=== PATIENT | female | born 1950 | race African-American/Black ===

== ENCOUNTER 2018-10-03 23:41 | Inpatient (IN) | payer MEDICARE, BC ==
[~2018-10-03] VITALS: Ht 177.8 cm; Wt 118.8 kg
[2018-10-04] MEDS ORDERED: MORPHINE SULFATE 4 MG/ML CPJ (NOT FOR IM USE) IV ONE ×2 (01:45→05:00)
[2018-10-04] MEDS ORDERED: ONDANSETRON HCL 4MG/2ML INJ IV ONE ×2 (01:45→05:00)
[2018-10-04 06:28] LABS: EOSINOPHILS % 1.3 % (0.0-5.0); HEMATOCRIT. 35.2 % (36.0-48.0); HEMOGLOBIN. 11.3 g/dL (12.0-16.0); LYMPHOCYTES % 17.5 % (20.0-50.0); MEAN CORPUSCULAR HEMOGLOBIN 26.4 pg (28.0-32.0); MEAN CORPUSCULAR VOLUME 82.4 fL (81.0-99.0); MEAN PLATELET VOLUME 9.6 fl (7.4-10.4); NEUTROPHILS % 66.2 % (40.0-76.0); PLATELET 213 x1000/uL (130-400); RED BLOOD CELL COUNT 4.28 mill/uL (4.2-5.4); RED CELL DISTRIBUTION WIDTH 16.5 % (11.6-14.6)
[2018-10-04 06:37] LABS: CHLORIDE 108 mEq/L (98-107)
[2018-10-04] MEDS ORDERED: ACETAMINOPHEN 325MG TABLET PO SCH (11:15)
[2018-10-04] MEDS ORDERED: ONDANSETRON HCL 4MG/2ML INJ IV PRN (12:15)
[2018-10-04] MEDS ORDERED: NITROGLYCERIN 0.4MG TABLET SL SL PRN (12:15)
[2018-10-04] MEDS ORDERED: IPRATROPIUM/ALBUTEROL 0.5-3(2.5)MG/3ML NEB INH PRN (12:15)
[2018-10-04] MEDS ORDERED: GUAIFENESIN 200MG/10ML SUGAR FREE UDC PO PRN (12:15)
[2018-10-04] MEDS ORDERED: MAGNESIUM/ALUMINUM HYDROXIDE/SIMETHICONE 30ML UDC PO PRN (12:15)
[2018-10-04] MEDS ORDERED: DOCUSATE SODIUM 100MG CAPSULE PO PRN (12:15)
[2018-10-04] MEDS: ENOXAPARIN 30MG/0.3ML SYR SUBCUT SCH ×2 (13:00→21:05)
[2018-10-04 13:11] VITALS: BP 135/66
[2018-10-04] MEDS: KETOROLAC 15MG/ML VIAL IV PRN ×2 (15:26→20:53)
[2018-10-04 16:00] VITALS: BP_SYST 134; BP_SYST 142; BP_DIAS 62; BP_DIAS 72
[2018-10-04 20:00] VITALS: BP 129/64
[2018-10-04] MEDS: FAMOTIDINE 20MG TABLET PO SCH (20:51)
[2018-10-04] MEDS: METOPROLOL TARTRATE 25MG TABLET PO SCH (20:52)
[2018-10-05] VITALS: BP 140/84
[2018-10-05] MEDS: KETOROLAC 15MG/ML VIAL IV PRN ×3 (03:21→23:43)
[2018-10-05 04:00] VITALS: BP 124/71
[2018-10-05 08:00] VITALS: BP 152/72
[2018-10-05] MEDS: ASPIRIN 325MG EC TABLET PO SCH (08:30)
[2018-10-05] MEDS: METOPROLOL TARTRATE 25MG TABLET PO SCH ×2 (08:30→22:21)
[2018-10-05] MEDS: FAMOTIDINE 20MG TABLET PO SCH ×2 (08:30→22:20)
[2018-10-05] MEDS: ENOXAPARIN 30MG/0.3ML SYR SUBCUT SCH ×2 (08:31→22:21)
[2018-10-05 12:00] VITALS: BP 130/70
[2018-10-05 16:00] VITALS: BP 138/80
[2018-10-05 20:00] VITALS: BP_SYST 163; BP_SYST 97; BP_DIAS 50; BP_DIAS 89
[2018-10-05] MEDS: ACETAMINOPHEN 325MG TABLET PO PRN (22:26)
[2018-10-05] MEDS: ZOLPIDEM TARTRATE 5MG TABLET PO PRN (23:44)
[2018-10-06] VITALS: BP 156/95
[2018-10-06 04:00] VITALS: BP 163/84
[2018-10-06 08:00] VITALS: BP 165/93
[2018-10-06] MEDS: ASPIRIN 325MG EC TABLET PO SCH (09:40)
[2018-10-06] MEDS: METOPROLOL TARTRATE 25MG TABLET PO SCH ×2 (09:40→20:45)
[2018-10-06] MEDS: FAMOTIDINE 20MG TABLET PO SCH ×2 (09:40→20:44)
[2018-10-06] MEDS: ENOXAPARIN 30MG/0.3ML SYR SUBCUT SCH ×2 (09:41→20:44)
[2018-10-06 12:00] VITALS: BP 162/81
[2018-10-06] MEDS: KETOROLAC 15MG/ML VIAL IV PRN ×2 (12:38→18:24)
[2018-10-06 16:00] VITALS: BP 171/94
[2018-10-06] MEDS: CLONIDINE 0.1MG TABLET PO PRN (16:50)
[2018-10-06 20:00] VITALS: BP 154/72
[2018-10-06] MEDS: ZOLPIDEM TARTRATE 5MG TABLET PO PRN (20:44)
[2018-10-07] VITALS: BP 106/88
[2018-10-07] MEDS: KETOROLAC 15MG/ML VIAL IV PRN ×4 (01:10→22:37)
[2018-10-07 04:00] VITALS: BP 158/80
[2018-10-07 08:00] VITALS: BP 165/80
[2018-10-07] MEDS: FAMOTIDINE 20MG TABLET PO SCH ×2 (09:24→21:08)
[2018-10-07] MEDS: METOPROLOL TARTRATE 25MG TABLET PO SCH ×2 (09:24→21:09)
[2018-10-07] MEDS: ASPIRIN 325MG EC TABLET PO SCH (09:24)
[2018-10-07] MEDS: ENOXAPARIN 30MG/0.3ML SYR SUBCUT SCH ×2 (09:25→21:08)
[2018-10-07] MEDS: CLONIDINE 0.1MG TABLET PO PRN (15:45)
[2018-10-07 16:00] VITALS: BP 191/86
[2018-10-07 20:00] VITALS: BP 167/71
[2018-10-07] MEDS: ZOLPIDEM TARTRATE 5MG TABLET PO PRN (21:09)
[2018-10-08] VITALS: BP 159/85
[2018-10-08 04:00] VITALS: BP 154/77
[2018-10-08 08:00] VITALS: BP 173/79
[2018-10-08] MEDS: METOPROLOL TARTRATE 25MG TABLET PO SCH ×2 (08:30→21:39)
[2018-10-08] MEDS: ASPIRIN 325MG EC TABLET PO SCH (08:30)
[2018-10-08] MEDS: FAMOTIDINE 20MG TABLET PO SCH ×2 (08:30→21:39)
[2018-10-08] MEDS: ENOXAPARIN 30MG/0.3ML SYR SUBCUT SCH ×2 (08:31→21:39)
[2018-10-08] MEDS: KETOROLAC 15MG/ML VIAL IV PRN ×2 (08:31→21:39)
[2018-10-08 12:00] VITALS: BP 146/90
[2018-10-08 16:00] VITALS: BP 162/99
[2018-10-08 20:00] VITALS: BP 157/91
[2018-10-08] MEDS: ZOLPIDEM TARTRATE 5MG TABLET PO PRN (21:39)
[2018-10-09] VITALS: BP 151/60
[2018-10-09 04:00] VITALS: BP 160/85
[2018-10-09] MEDS: KETOROLAC 15MG/ML VIAL IV PRN ×3 (05:53→21:00)
[2018-10-09 08:00] VITALS: BP 141/65
[2018-10-09] MEDS: METOPROLOL TARTRATE 25MG TABLET PO SCH ×2 (08:57→21:00)
[2018-10-09] MEDS: ENOXAPARIN 30MG/0.3ML SYR SUBCUT SCH ×2 (08:57→21:05)
[2018-10-09] MEDS: FAMOTIDINE 20MG TABLET PO SCH ×2 (08:57→20:59)
[2018-10-09] MEDS: ASPIRIN 325MG EC TABLET PO SCH (08:57)
[2018-10-09 12:00] VITALS: BP 140/60
[2018-10-09 16:00] VITALS: BP 124/81
[2018-10-09 20:00] VITALS: BP 135/97
[2018-10-09] MEDS ORDERED: ZOLPIDEM TARTRATE 5MG TABLET PO PRN (21:00)
[2018-10-10] VITALS: BP 166/96
[2018-10-10] MEDS: ACETAMINOPHEN 325MG TABLET PO PRN (03:21)
[2018-10-10 04:00] VITALS: BP 168/99
[2018-10-10] MEDS: KETOROLAC 15MG/ML VIAL IV PRN ×2 (05:30→23:15)
[2018-10-10] MEDS: CLONIDINE 0.1MG TABLET PO PRN ×2 (05:31→20:47)
[2018-10-10 08:00] VITALS: BP 149/72
[2018-10-10] MEDS: ASPIRIN 325MG EC TABLET PO SCH (09:00)
[2018-10-10] MEDS: FAMOTIDINE 20MG TABLET PO SCH ×2 (09:00→20:47)
[2018-10-10] MEDS: ENOXAPARIN 30MG/0.3ML SYR SUBCUT SCH ×2 (09:00→20:48)
[2018-10-10] MEDS: METOPROLOL TARTRATE 25MG TABLET PO SCH ×2 (09:00→20:47)
[2018-10-10 12:00] VITALS: BP 150/69
[2018-10-10 16:00] VITALS: BP 158/83
[2018-10-10 20:00] VITALS: BP 165/92
[2018-10-11] VITALS (7 sets, daily range): BP systolic 132–166; BP diastolic 63–90
[2018-10-11] MEDS: KETOROLAC 15MG/ML VIAL IV PRN (05:39)
[2018-10-11] MEDS: FAMOTIDINE 20MG TABLET PO SCH (09:19)
[2018-10-11] MEDS: ASPIRIN 325MG EC TABLET PO SCH (09:19)
[2018-10-11] MEDS: ENOXAPARIN 30MG/0.3ML SYR SUBCUT SCH (09:19)
[2018-10-11] MEDS: METOPROLOL TARTRATE 25MG TABLET PO SCH (09:19)
[2018-10-11] MEDS: ACETAMINOPHEN 325MG TABLET PO PRN (10:40)
== END 2018-10-11 20:25 | DRG 561 ==
LOC: ER 23:41 → 6EST 10-04 06:38 → EDBEDREQ 10-04 06:44 → EDBEDREQTM 10-04 06:55 → EDBEDREQ 10-04 06:55 → ENRESERV 10-04 11:25 → 6EST 10-06 15:40
PROVIDERS: ADMIT Internal Medicine; ATTEND Internal Medicine
DX: T84.89XA Other specified complication of internal orthopedic prosthetic devices, implants and grafts, initial encounter (principal); M97.12XA Periprosthetic fracture around internal prosthetic left knee joint, initial encounter; Z96.659 Presence of unspecified artificial knee joint; G35 Multiple sclerosis; I10 Essential (primary) hypertension; I48.91 Unspecified atrial fibrillation; G89.29 Other chronic pain; Z53.29 Procedure and treatment not carried out because of patient's decision for other reasons; M21.10 Varus deformity, not elsewhere classified, unspecified site; Z76.5 Malingerer [conscious simulation]; Z79.899 Other long term (current) drug therapy; Z87.81 Personal history of (healed) traumatic fracture
CPT/HCPCS: 36415; 73552; 73560; 80048; 80061; 83036; 93970; 96374; 96375; 96376; 97116; 97162; 97165; 97530; 99285; C1893; J1650; J1885; J2270; J2405

== ENCOUNTER 2018-11-04 08:44 | Emergency (ER) | payer MEDICARE, BC ==
[~2018-11-04] VITALS: Ht 165.1 cm; Wt 110.0 kg
[2018-11-04] MEDS ORDERED: MORPHINE SULFATE 10 MG/ML CPJ IM ONE (10:15)
[2018-11-04] MEDS ORDERED: KETOROLAC 30MG/ML VIAL IM ONE (10:15)
[2018-11-04] MEDS ORDERED: HYDROCODONE/ACETAMINOPHEN 5/325MG TABLET PO ONE (10:45)
[2018-11-04] MEDS ORDERED: MORPHINE SULFATE 4 MG/ML CPJ (NOT FOR IM USE) IV ONE (11:30)
[2018-11-04] MEDS ORDERED: KETOROLAC 15MG/ML VIAL IV ONE (11:30)
[2018-11-04 14:20] VITALS: BP 132/80
== END 2018-11-04 14:23 | disposition home or self-care (01) ==
LOC: ER 08:59
DX: S80.02XA Contusion of left knee, initial encounter (principal); I48.91 Unspecified atrial fibrillation; I10 Essential (primary) hypertension; W18.39XA Other fall on same level, initial encounter; Y93.89 Activity, other specified; Y92.89 Other specified places as the place of occurrence of the external cause; Y99.8 Other external cause status; Z98.890 Other specified postprocedural states
CPT/HCPCS: 73562; 96374; 96375; 99283; J1885; J2270

== ENCOUNTER → 2019-01-02 | Outpatient (CLI) | payer MEDICARE, BC | END | disposition home or self-care (01) | LOC: CT 09:03 | PROVIDERS: ATTEND Internal Medicine | DX: M79.652 Pain in left thigh (principal); Z96.651 Presence of right artificial knee joint | CPT/HCPCS: 73700 ==

== ENCOUNTER 2020-05-17 07:47 | Inpatient (IN) | payer BC, MEDICARE ==
[~2020-05-17] VITALS: Ht 177.8 cm; Wt 104.3 kg
[2020-05-17 08:57] LABS: HEMATOCRIT. 48.8 % (36.0-48.0); HEMOGLOBIN. 16.3 g/dL (12.0-16.0); MEAN CORPUSCULAR HEMOGLOBIN 30.2 pg (28.0-32.0); MEAN CORPUSCULAR VOLUME 90.3 fL (81.0-99.0); MEAN PLATELET VOLUME 10.5 fl (7.4-10.4); PLATELET 266 x1000/uL (130-400); RED BLOOD CELL COUNT 5.41 mill/uL (4.2-5.4); RED CELL DISTRIBUTION WIDTH 14.5 % (11.6-14.6)
[2020-05-17] MEDS ORDERED: ASPIRIN 81MG TABLET PO ONE (09:00)
[2020-05-17] MEDS ORDERED: MAGNESIUM/ALUMINUM HYDROXIDE/SIMETHICONE 30ML UDC PO ONE (09:00)
[2020-05-17] MEDS ORDERED: NITROGLYCERIN 0.4MG TABLET SL SL PRN (09:00)
[2020-05-17 09:08] LABS: PROTHROMBIN TIME 10.6 sec (9.6-11.0)
[2020-05-17] MEDS ORDERED: SODIUM CHLORIDE 0.9% 500 ML IV ONE (09:30)
[2020-05-17] MEDS ORDERED: LORAZEPAM 2MG/ML CPJ IV ONE (09:30)
[2020-05-17 09:47] LABS: PLATELET ESTIMATE NORMAL
[2020-05-17] MEDS ORDERED: ONDANSETRON HCL 4MG/2ML INJ IV ONE ×2 (10:15→10:45)
[2020-05-17] MEDS ORDERED: MORPHINE SULFATE 4 MG/ML CPJ (NOT FOR IM USE) IV ONE (10:45)
[2020-05-17 11:47] LABS: CHLORIDE 100 mEq/L (98-107)
[2020-05-17] MEDS ORDERED: HEPARIN 5000 UNITS/ML VIAL IV ONE (12:30)
[2020-05-17] MEDS ORDERED: HEPARIN 25,000 UNITS PREMIX 250 ML IV ONE (12:30)
[2020-05-17 13:35] LABS: PROTHROMBIN TIME 10.7 sec (9.6-11.0)
[2020-05-17] MEDS ORDERED: DIPHENHYDRAMINE 50MG/ML VIAL IV PRN (14:15)
[2020-05-17] MEDS ORDERED: HEPARIN 25,000 UNITS PREMIX 250 ML IV SCH ×2 (14:15→15:45)
[2020-05-17] MEDS ORDERED: HEPARIN 60 UNITS/KG BOLUS IV SCH (14:15)
[2020-05-17] MEDS ORDERED: IPRATROPIUM/ALBUTEROL 0.5-3(2.5)MG/3ML NEB HHN PRN (14:15)
[2020-05-17] MEDS ORDERED: ACETAMINOPHEN 325MG TABLET PO PRN (14:15)
[2020-05-17] MEDS ORDERED: ONDANSETRON HCL 4MG/2ML INJ IV PRN (14:15)
[2020-05-17] MEDS ORDERED: HEPARIN BOLUS PRN aPTT 30-44 IV (14:15)
[2020-05-17] MEDS ORDERED: HEPARIN BOLUS PRN aPTT <30 IV (14:15)
[2020-05-17 15:34] LABS: CLARITY URINE CLEAR (CLEAR); COLOR URINE YELLOW (YELLOW); KETONES URINE TRACE (NEGATIVE); LEUKOCYTE ESTERASE URINE NEGATIVE (NEGATIVE); NITRITE URINE NEGATIVE (NEGATIVE); OCCULT BLOOD URINE TRACE (NEGATIVE); PROTEIN URINE 1+ (NEGATIVE); SPECIFIC GRAVITY URINE 1.012 (1.005-1.030)
[2020-05-17 15:38] LABS: PHOSPHORUS 3.7 mg/dL (2.5-4.9)
[2020-05-17] MEDS ORDERED: METOPROLOL TARTRATE 5MG/5ML VIAL IV NR (15:45)
[2020-05-17 15:48] VITALS: BP 151/103
[2020-05-17] MEDS ORDERED: METOPROLOL TARTRATE 5MG/5ML VIAL IV PRN (16:15)
[2020-05-17] MEDS: CLONIDINE 0.1MG TABLET PO PRN (16:59)
[2020-05-17 18:06] VITALS: BP 159/70
[2020-05-17 20:00] VITALS: BP 153/75
[2020-05-17] MEDS: MORPHINE SULFATE 2 MG/ML CPJ (NOT FOR IM USE) IV PRN (20:16)
[2020-05-17] MEDS: METOPROLOL TARTRATE 25MG TABLET PO SCH (21:21)
[2020-05-17 22:00] VITALS: BP 145/94
[2020-05-18] VITALS (7 sets, daily range): BP systolic 147–175; BP diastolic 72–104
[2020-05-18] MEDS: MORPHINE SULFATE 2 MG/ML CPJ (NOT FOR IM USE) IV PRN ×3 (00:35→14:42)
[2020-05-18 07:08] LABS: HEMATOCRIT. 41.7 % (36.0-48.0); HEMOGLOBIN. 13.9 g/dL (12.0-16.0); MEAN CORPUSCULAR HEMOGLOBIN 30.3 pg (28.0-32.0); MEAN CORPUSCULAR VOLUME 90.9 fL (81.0-99.0); MEAN PLATELET VOLUME 10.3 fl (7.4-10.4); PLATELET 192 x1000/uL (130-400); RED BLOOD CELL COUNT 4.59 mill/uL (4.2-5.4)
[2020-05-18 07:27] LABS: CHLORIDE 102 mEq/L (98-107)
[2020-05-18 07:43] LABS: HDL CHOLESTEROL 80 mg/dL (40-59)
[2020-05-18 07:44] LABS: LDL CHOLESTEROL 101 mg/dL (5-100)
[2020-05-18] MEDS: CLONIDINE 0.1MG TABLET PO PRN (08:03)
[2020-05-18] MEDS: METOPROLOL TARTRATE 25MG TABLET PO SCH (08:09)
[2020-05-18] MEDS ORDERED: METO25TA6 PO (12:07)
[2020-05-18] MEDS ORDERED: RANO500T3 MT (12:07)
[2020-05-18 14:49] LABS: PLATELET ESTIMATE NORMAL
== END 2020-05-18 17:47 | disposition home or self-care (01) | DRG 280 ==
LOC: ER 07:51 → 3WST 12:27 → EDBEDREQ 12:29 → ENRESERV 14:12
PROVIDERS: ADMIT Internal Medicine; ATTEND Internal Medicine
DX: I21.4 Non-ST elevation (NSTEMI) myocardial infarction (principal); I50.31 Acute diastolic (congestive) heart failure; I48.0 Paroxysmal atrial fibrillation; E66.9 Obesity, unspecified; G35 Multiple sclerosis; I11.0 Hypertensive heart disease with heart failure; F40.240 Claustrophobia; R29.6 Repeated falls; R56.9 Unspecified convulsions; Z82.49 Family history of ischemic heart disease and other diseases of the circulatory system; Z86.73 Personal history of transient ischemic attack (TIA), and cerebral infarction without residual deficits; Z68.33 Body mass index [BMI] 33.0-33.9, adult; R74.0 Nonspecific elevation of levels of transaminase and lactic acid dehydrogenase [LDH]; K76.1 Chronic passive congestion of liver; M94.0 Chondrocostal junction syndrome [Tietze]
CPT/HCPCS: 36415; 71045; 80053; 80061; 81003; 83036; 83735; 83880; 84100; 84443; 84484; 85025; 93005; 93306; 93970; 99291; J1644; J2060; J2270; J2405; J3490; J7040

== ENCOUNTER 2020-06-29 19:01 | Inpatient (IN) | payer BC, OTHER ==
[~2020-06-29] VITALS: Ht 167.6 cm; Wt 97.5 kg
[~2020-06-29 19:01] MED LIST: METO25TA6 PO; RANO500T3 MT
[2020-06-29 20:45] LABS: EOSINOPHILS % 2.1 % (0.0-5.0); HEMOGLOBIN. 13.9 g/dL (12.0-16.0); LYMPHOCYTES % 18.5 % (20.0-50.0); MEAN CORPUSCULAR HEMOGLOBIN 30.4 pg (28.0-32.0); MEAN CORPUSCULAR VOLUME 92.1 fL (81.0-99.0); MEAN PLATELET VOLUME 9.8 fl (7.4-10.4); MONOCYTES % 9.5 % (2.0-8.0); NEUTROPHILS % 68.9 % (40.0-76.0); PLATELET 281 x1000/uL (130-400); RED BLOOD CELL COUNT 4.56 mill/uL (4.2-5.4); RED CELL DISTRIBUTION WIDTH 14.4 % (11.6-14.6)
[2020-06-29 20:50] LABS: CHLORIDE 108 mEq/L (98-107)
[2020-06-29 20:56] LABS: ETHANOL BLOOD < 10 mg/dL
[2020-06-29 20:59] LABS: LDL CHOLESTEROL 112 mg/dL (5-100)
[2020-06-29] MEDS ORDERED: LEVETIRACETAM 2,000 MG in SODIUM CHLORIDE 0.9% 100 ML IV SCH (21:15)
[2020-06-29] MEDS ORDERED: ONDANSETRON HCL 4MG/2ML INJ IV PRN (21:30)
[2020-06-29] MEDS ORDERED: NITROPRUSSIDE 50 MG in DEXT 5% WATER 248 ML IV PRN ×5 (21:30→22:45)
[2020-06-29] MEDS ORDERED: ACETAMINOPHEN 325MG TABLET PO PRN (21:30)
[2020-06-29] MEDS ORDERED: LEVETIRACETAM 1000MG/100ML 100 ML IV SCH ×2 (22:00)
[2020-06-29] MEDS: MORPHINE SULFATE 2 MG/ML CPJ (NOT FOR IM USE) IV PRN (22:01)
[2020-06-29] MEDS: METOPROLOL TARTRATE 25MG TABLET PO SCH (22:15)
[2020-06-29] MEDS ORDERED: SODIUM CHLORIDE 0.9% 10ML VIAL ONE (23:45)
[2020-06-29] MEDS ORDERED: ATROPINE SULFATE 1MG/10ML SYR ONE (23:45)
[2020-06-30] VITALS (89 sets, daily range): BP systolic 47–184; BP diastolic 25–133
[2020-06-30] MEDS: DEXT 5%/LACTATED RINGERS 1,000 ML IV SCH ×2 (00:49→23:00)
[2020-06-30] MEDS: DEXAMETHASONE 4MG/ML 1ML VIAL IV SCH ×5 (01:08→23:30)
[2020-06-30] MEDS: MORPHINE SULFATE 2 MG/ML CPJ (NOT FOR IM USE) IV PRN ×6 (01:08→21:18)
[2020-06-30] MEDS: RANOLAZINE 500 MG TAB.SR.12H PO SCH ×3 (01:59→18:12)
[2020-06-30] MEDS: METOPROLOL TARTRATE 25MG TABLET PO SCH ×2 (08:55→18:13)
[2020-06-30] MEDS ORDERED: LEVETIRACETAM 500MG PREMIX 100 ML IV SCH (09:00)
[2020-06-30 09:54] LABS: BASOPHILS % 0.4 % (0.0-2.0); HEMATOCRIT. 40.4 % (36.0-48.0); HEMOGLOBIN. 13.4 g/dL (12.0-16.0); LYMPHOCYTES % 9.7 % (20.0-50.0); MEAN CORPUSCULAR HEMOGLOBIN 30.5 pg (28.0-32.0); MEAN CORPUSCULAR VOLUME 91.5 fL (81.0-99.0); MEAN PLATELET VOLUME 9.9 fl (7.4-10.4); MONOCYTES % 1.3 % (2.0-8.0); NEUTROPHILS % 88.6 % (40.0-76.0); PLATELET 270 x1000/uL (130-400); RED BLOOD CELL COUNT 4.41 mill/uL (4.2-5.4); RED CELL DISTRIBUTION WIDTH 14.6 % (11.6-14.6)
[2020-06-30 10:02] LABS: CHLORIDE 107 mEq/L (98-107)
[2020-06-30] MEDS: LEVETIRACETAM 500MG PREMIX 100 ML IV SCH ×2 (10:03→20:39)
[2020-06-30] MEDS: ATORVASTATIN CALCIUM 40MG TABLET PO SCH ×2 (11:00→23:00)
[2020-06-30] MEDS: NITROGLYCERIN 50MG PREMIX 250 ML IV PRN (19:45)
[2020-06-30] MEDS: FAMOTIDINE 20MG/2ML VIAL IV SCH (20:39)
[2020-07-01] VITALS (114 sets, daily range): BP systolic 0–205; BP diastolic 0–110
[2020-07-01] MEDS: MORPHINE SULFATE 2 MG/ML CPJ (NOT FOR IM USE) IV PRN ×2 (00:25→03:38)
[2020-07-01] MEDS: NITROGLYCERIN 50MG PREMIX 250 ML IV PRN (05:00)
[2020-07-01] MEDS: DEXAMETHASONE 4MG/ML 1ML VIAL IV SCH ×4 (05:38→23:50)
[2020-07-01 05:47] LABS: BASOPHILS % 0.1 % (0.0-2.0); HEMATOCRIT. 36.9 % (36.0-48.0); HEMOGLOBIN. 12.4 g/dL (12.0-16.0); LYMPHOCYTES % 9.6 % (20.0-50.0); MEAN CORPUSCULAR HEMOGLOBIN 30.4 pg (28.0-32.0); MEAN CORPUSCULAR VOLUME 90.5 fL (81.0-99.0); MEAN PLATELET VOLUME 9.8 fl (7.4-10.4); MONOCYTES % 4.2 % (2.0-8.0); NEUTROPHILS % 86.1 % (40.0-76.0); PLATELET 328 x1000/uL (130-400); RED BLOOD CELL COUNT 4.07 mill/uL (4.2-5.4); RED CELL DISTRIBUTION WIDTH 14.8 % (11.6-14.6)
[2020-07-01 05:51] LABS: INR 1.1; PROTHROMBIN TIME 11.3 sec (9.6-11.0)
[2020-07-01 05:57] LABS: CHLORIDE 106 mEq/L (98-107)
[2020-07-01] MEDS: DEXT 5%/LACTATED RINGERS 1,000 ML IV SCH ×2 (06:04→23:50)
[2020-07-01] MEDS ORDERED: THROMBIN (BOVINE) 5000 UNITS/VIAL TOP ONE (06:58)
[2020-07-01] MEDS ORDERED: BACITRACIN 50,000 UNITS/VIAL ONE (06:59)
[2020-07-01] MEDS ORDERED: BACITRACIN 15GM TUBE TOP ONE (06:59)
[2020-07-01] MEDS ORDERED: NEOSTIGMINE METHYLSULFATE 1MG/ML 10 ML VIAL ONE (07:06)
[2020-07-01] MEDS ORDERED: ROCURONIUM BROMIDE 10MG/ML VIAL 5ML IV ONE (07:06)
[2020-07-01] MEDS ORDERED: FENTANYL CITRATE/PF 50MCG/ML 2ML VIAL ONE (07:06)
[2020-07-01] MEDS ORDERED: PROPOFOL 200MG/20ML VIAL IV ONE ×2 (07:07→08:08)
[2020-07-01] MEDS ORDERED: GLYCOPYRROLATE 0.2 MG/ML 2ML VIAL ONE (07:07)
[2020-07-01] MEDS ORDERED: MIDAZOLAM HCL 2 MG/2 ML VIAL ONE (07:07)
[2020-07-01] MEDS ORDERED: DEXAMETHASONE 4MG/ML 1ML VIAL ONE (08:07)
[2020-07-01] MEDS ORDERED: ONDANSETRON HCL 4MG/2ML INJ ONE (08:08)
[2020-07-01] MEDS: RANOLAZINE 500 MG TAB.SR.12H PO SCH ×2 (09:00→16:43)
[2020-07-01] MEDS: METOPROLOL TARTRATE 25MG TABLET PO SCH ×2 (09:00→16:43)
[2020-07-01] MEDS: PROPOFOL 10MG/ML 100ML 100 ML IV PRN ×4 (09:02→22:25)
[2020-07-01] MEDS: MORPHINE SULFATE 4 MG/ML CPJ (NOT FOR IM USE) IV PRN ×4 (09:03→20:59)
[2020-07-01] MEDS: LEVETIRACETAM 500MG PREMIX 100 ML IV SCH ×2 (09:20→20:23)
[2020-07-01] MEDS: FAMOTIDINE 20MG/2ML VIAL IV SCH ×2 (09:20→20:23)
[2020-07-01] MEDS ORDERED: MORPHINE SULFATE 2 MG/ML CPJ (NOT FOR IM USE) IV NR (10:15)
[2020-07-01] MEDS: NITROPRUSSIDE 100 MG in DEXT 5% WATER 246 ML IV PRN ×2 (11:17→21:18)
[2020-07-01 11:59] LABS: BG BASE EXCESS -4.5 mmol/L (-2.0-2.0); BG CARBOXYHEMOGLOBIN 0.3 % (0.5-1.5); BG DEOXYHEMOGLOBIN 2.4 % (0.0-5.0); BG FRACTION INSPIRED OXYGEN 50; BG HCO3 ACT 21.3 mmol/L (22.0-26.0); BG METHEMOGLOBIN 0.4 % (0.0-1.5); BG OXYGEN SATURATION 97.6 % (92.0-98.5); BG OXYHEMOGLOBIN 96.9 % (94.0-97.0); BG PCO2 42.1 mmHg (35.0-45.0); BG PH 7.322 (7.350-7.450); BG PO2 112.6 mmHg (75.0-100.0); BG SAMPLE SITE ALINE; BG TOTAL HEMOGLOBIN 11.5 g/dL (12.0-18.0); BG VENT MODE VENT - SIMV
[2020-07-01] MEDS ORDERED: CEFAZOLIN SODIUM 1000MG/VIAL IV SCH (14:00)
[2020-07-01] MEDS: CEFAZOLIN 1000MG PREMIX 50 ML IV SCH ×2 (14:38→21:00)
[2020-07-01] MEDS: ATORVASTATIN CALCIUM 40MG TABLET PO SCH (20:03)
[2020-07-02] VITALS (99 sets, daily range): BP systolic 80–138; BP diastolic 39–80
[2020-07-02] MEDS: PROPOFOL 10MG/ML 100ML 100 ML IV PRN ×3 (01:41→16:22)
[2020-07-02] MEDS: NITROPRUSSIDE 100 MG in DEXT 5% WATER 246 ML IV PRN ×4 (03:18→17:30)
[2020-07-02] MEDS: MORPHINE SULFATE 4 MG/ML CPJ (NOT FOR IM USE) IV PRN (04:44)
[2020-07-02] MEDS: CEFAZOLIN 1000MG PREMIX 50 ML IV SCH ×3 (05:00→21:21)
[2020-07-02] MEDS: DEXAMETHASONE 4MG/ML 1ML VIAL IV SCH ×2 (05:00→12:07)
[2020-07-02 07:04] LABS: HEMATOCRIT. 35.2 % (36.0-48.0); HEMOGLOBIN. 11.8 g/dL (12.0-16.0); MEAN CORPUSCULAR HEMOGLOBIN 30.6 pg (28.0-32.0); MEAN CORPUSCULAR VOLUME 91.3 fL (81.0-99.0); MEAN PLATELET VOLUME 10.4 fl (7.4-10.4); PLATELET 296 x1000/uL (130-400); RED BLOOD CELL COUNT 3.86 mill/uL (4.2-5.4); RED CELL DISTRIBUTION WIDTH 14.9 % (11.6-14.6)
[2020-07-02 07:12] LABS: CHLORIDE 106 mEq/L (98-107)
[2020-07-02 08:00] LABS: BG BASE EXCESS -4.6 mmol/L (-2.0-2.0); BG DEOXYHEMOGLOBIN 1.1 % (0.0-5.0); BG HCO3 ACT 19.2 mmol/L (22.0-26.0); BG METHEMOGLOBIN 0.2 % (0.0-1.5); BG OXYGEN SATURATION 98.9 % (92.0-98.5); BG OXYHEMOGLOBIN 98.7 % (94.0-97.0); BG PCO2 31.5 mmHg (35.0-45.0); BG PH 7.402 (7.350-7.450); BG PO2 182.4 mmHg (75.0-100.0); BG SAMPLE SITE ALINE; BG TOTAL HEMOGLOBIN 12.2 g/dL (12.0-18.0); BG VENT MODE VENT - SIMV
[2020-07-02] MEDS: FAMOTIDINE 20MG/2ML VIAL IV SCH ×2 (08:09→20:43)
[2020-07-02] MEDS: LEVETIRACETAM 500MG PREMIX 100 ML IV SCH ×2 (08:09→20:43)
[2020-07-02] MEDS: RANOLAZINE 500 MG TAB.SR.12H PO SCH (08:11)
[2020-07-02] MEDS: METOPROLOL TARTRATE 25MG TABLET PO SCH (08:11)
[2020-07-02 08:43] LABS: PLATELET ESTIMATE NORMAL
[2020-07-02] MEDS ORDERED: POTASSIUM CHLORIDE INJ 40 MEQ in DEXT 5% WATER 250 ML IV NR (11:30)
[2020-07-02] MEDS: DEXT 5%/LACTATED RINGERS 1,000 ML IV SCH (16:13)
[2020-07-02] MEDS ORDERED: PROPOFOL 10MG/ML 100ML 100 ML IV PRN (16:15)
[2020-07-02] MEDS: ATORVASTATIN CALCIUM 40MG TABLET PO SCH (20:05)
[2020-07-03] VITALS (102 sets, daily range): BP systolic 0–150; BP diastolic 0–88
[2020-07-03] MEDS: PROPOFOL 10MG/ML 100ML 100 ML IV PRN (00:54)
[2020-07-03] MEDS: NITROPRUSSIDE 100 MG in DEXT 5% WATER 246 ML IV PRN ×3 (00:54→22:45)
[2020-07-03] MEDS: CEFAZOLIN 1000MG PREMIX 50 ML IV SCH (05:11)
[2020-07-03 05:34] LABS: HEMATOCRIT. 37.1 % (36.0-48.0); HEMOGLOBIN. 12.4 g/dL (12.0-16.0); MEAN CORPUSCULAR HEMOGLOBIN 30.5 pg (28.0-32.0); MEAN CORPUSCULAR VOLUME 91.2 fL (81.0-99.0); MEAN PLATELET VOLUME 10.3 fl (7.4-10.4); PLATELET 294 x1000/uL (130-400); RED BLOOD CELL COUNT 4.07 mill/uL (4.2-5.4); RED CELL DISTRIBUTION WIDTH 15.2 % (11.6-14.6)
[2020-07-03 05:57] LABS: CHLORIDE 104 mEq/L (98-107)
[2020-07-03] MEDS: LEVETIRACETAM 500MG PREMIX 100 ML IV SCH ×2 (07:58→21:32)
[2020-07-03] MEDS: DEXT 5%/LACTATED RINGERS 1,000 ML IV SCH (08:01)
[2020-07-03] MEDS: FAMOTIDINE 20MG/2ML VIAL IV SCH ×2 (08:01→21:32)
[2020-07-03 09:11] LABS: BG BASE EXCESS -5.2 mmol/L (-2.0-2.0); BG CARBOXYHEMOGLOBIN 0.1 % (0.5-1.5); BG FRACTION INSPIRED OXYGEN 50; BG HCO3 ACT 18.2 mmol/L (22.0-26.0); BG METHEMOGLOBIN 0.4 % (0.0-1.5); BG OXYHEMOGLOBIN 97.5 % (94.0-97.0); BG PCO2 29.3 mmHg (35.0-45.0); BG PO2 210.1 mmHg (75.0-100.0); BG SAMPLE SITE ALINE; BG TOTAL HEMOGLOBIN 12.9 g/dL (12.0-18.0); BG VENT MODE VENT - SIMV
[2020-07-03] MEDS ORDERED: FUROSEMIDE 20MG/2ML VIAL IVP NR (09:45)
[2020-07-03 10:08] LABS: BG BASE EXCESS -4.8 mmol/L (-2.0-2.0); BG CARBOXYHEMOGLOBIN 0.2 % (0.5-1.5); BG DEOXYHEMOGLOBIN 2.1 % (0.0-5.0); BG FRACTION INSPIRED OXYGEN 50; BG HCO3 ACT 18.6 mmol/L (22.0-26.0); BG METHEMOGLOBIN 0.3 % (0.0-1.5); BG OXYGEN SATURATION 97.9 % (92.0-98.5); BG OXYHEMOGLOBIN 97.4 % (94.0-97.0); BG PCO2 29.5 mmHg (35.0-45.0); BG PH 7.417 (7.350-7.450); BG PO2 166.4 mmHg (75.0-100.0); BG SAMPLE SITE ALINE; BG TOTAL HEMOGLOBIN 12.5 g/dL (12.0-18.0); BG VENT MODE VENT - CPAP
[2020-07-03] MEDS ORDERED: POTASSIUM CHLORIDE INJ 40 MEQ in DEXT 5% WATER 250 ML IV ONE (11:30)
[2020-07-03 13:19] LABS: PLATELET ESTIMATE NORMAL
[2020-07-03] MEDS ORDERED: POTASSIUM CHLORIDE INJ 40 MEQ in DEXT 5% WATER 250 ML IV SCH (17:00)
[2020-07-03] MEDS ORDERED: RACEPINEPHRINE 2.25% 0.5ML NEB VIAL HHN NR (18:30)
[2020-07-03] MEDS: IPRATROPIUM/ALBUTEROL 0.5-3(2.5)MG/3ML NEB HHN SCH ×2 (18:51→20:32)
[2020-07-03 18:53] LABS: BG BASE EXCESS -2.5 mmol/L (-2.0-2.0); BG CARBOXYHEMOGLOBIN 0.3 % (0.5-1.5); BG DEOXYHEMOGLOBIN 2.3 % (0.0-5.0); BG FRACTION INSPIRED OXYGEN 28; BG HCO3 ACT 19.6 mmol/L (22.0-26.0); BG METHEMOGLOBIN 0.3 % (0.0-1.5); BG OXYGEN SATURATION 97.7 % (92.0-98.5); BG OXYHEMOGLOBIN 97.1 % (94.0-97.0); BG PCO2 26.4 mmHg (35.0-45.0); BG PH 7.488 (7.350-7.450); BG PO2 107.7 mmHg (75.0-100.0); BG SAMPLE SITE ALINE; BG TOTAL HEMOGLOBIN 12.4 g/dL (12.0-18.0); BG VENT MODE NASAL CANNULA
[2020-07-03] MEDS: ATORVASTATIN CALCIUM 40MG TABLET PO SCH (21:00)
[2020-07-03] MEDS: MORPHINE SULFATE 4 MG/ML CPJ (NOT FOR IM USE) IV PRN (21:33)
[2020-07-04] VITALS (108 sets, daily range): BP systolic 76–185; BP diastolic 37–144
[2020-07-04] MEDS: MORPHINE SULFATE 4 MG/ML CPJ (NOT FOR IM USE) IV PRN ×4 (00:16→22:26)
[2020-07-04] MEDS: IPRATROPIUM/ALBUTEROL 0.5-3(2.5)MG/3ML NEB HHN SCH ×6 (00:49→20:28)
[2020-07-04] MEDS: DEXT 5%/LACTATED RINGERS 1,000 ML IV SCH ×2 (01:13→18:24)
[2020-07-04 06:03] LABS: HEMATOCRIT. 34.8 % (36.0-48.0); HEMOGLOBIN. 11.6 g/dL (12.0-16.0); MEAN CORPUSCULAR HEMOGLOBIN 30.5 pg (28.0-32.0); MEAN CORPUSCULAR VOLUME 91.4 fL (81.0-99.0); MEAN PLATELET VOLUME 10.3 fl (7.4-10.4); PLATELET 235 x1000/uL (130-400); RED BLOOD CELL COUNT 3.81 mill/uL (4.2-5.4); RED CELL DISTRIBUTION WIDTH 15.2 % (11.6-14.6)
[2020-07-04 06:13] LABS: CHLORIDE 112 mEq/L (98-107)
[2020-07-04] MEDS: FAMOTIDINE 20MG/2ML VIAL IV SCH ×2 (08:40→20:41)
[2020-07-04] MEDS: LEVETIRACETAM 500MG PREMIX 100 ML IV SCH ×2 (08:40→20:41)
[2020-07-04 09:02] LABS: BG BASE EXCESS -3.9 mmol/L (-2.0-2.0); BG CARBOXYHEMOGLOBIN 0.2 % (0.5-1.5); BG DEOXYHEMOGLOBIN 2.4 % (0.0-5.0); BG HCO3 ACT 20.9 mmol/L (22.0-26.0); BG METHEMOGLOBIN 0.2 % (0.0-1.5); BG OXYGEN SATURATION 97.6 % (92.0-98.5); BG OXYHEMOGLOBIN 97.2 % (94.0-97.0); BG PCO2 37.1 mmHg (35.0-45.0); BG PH 7.368 (7.350-7.450); BG PO2 108.4 mmHg (75.0-100.0); BG SAMPLE SITE ALINE; BG TOTAL HEMOGLOBIN 12.1 g/dL (12.0-18.0); BG VENT MODE NASAL CANNULA
[2020-07-04 10:49] LABS: PLATELET ESTIMATE NORMAL
[2020-07-04] MEDS ORDERED: CLONIDINE 0.1MG TABLET PO PRN (17:15)
[2020-07-04] MEDS: NICARDIPINE 100 MG in SODIUM CHLORIDE 0.9% 60 ML IV PRN (20:16)
[2020-07-04] MEDS: AMLODIPINE 5MG TABLET PO SCH (20:52)
[2020-07-04] MEDS: METOPROLOL TARTRATE 25MG TABLET PO SCH (20:52)
[2020-07-04] MEDS: ATORVASTATIN CALCIUM 40MG TABLET PO SCH (20:52)
[2020-07-05] VITALS (65 sets, daily range): BP systolic 106–162; BP diastolic 39–88
[2020-07-05] MEDS: IPRATROPIUM/ALBUTEROL 0.5-3(2.5)MG/3ML NEB HHN SCH ×6 (00:36→21:18)
[2020-07-05] MEDS: MORPHINE SULFATE 4 MG/ML CPJ (NOT FOR IM USE) IV PRN ×5 (00:48→18:54)
[2020-07-05] MEDS: NICARDIPINE 100 MG in SODIUM CHLORIDE 0.9% 60 ML IV PRN ×2 (01:52→10:10)
[2020-07-05] MEDS: AMLODIPINE 5MG TABLET PO SCH ×2 (09:31→20:50)
[2020-07-05] MEDS: FAMOTIDINE 20MG/2ML VIAL IV SCH ×2 (09:31→20:49)
[2020-07-05] MEDS: METOPROLOL TARTRATE 25MG TABLET PO SCH (09:31)
[2020-07-05] MEDS: LEVETIRACETAM 500MG PREMIX 100 ML IV SCH ×2 (09:32→20:49)
[2020-07-05] MEDS: DEXT 5%/LACTATED RINGERS 1,000 ML IV SCH (09:35)
[2020-07-05] MEDS: HYDROCODONE/ACETAMINOPHEN 5/325MG TABLET PO PRN (13:07)
[2020-07-05] MEDS: ATORVASTATIN CALCIUM 40MG TABLET PO SCH (20:49)
[2020-07-05] MEDS: RANOLAZINE 500 MG TAB.SR.12H PO SCH (20:50)
[2020-07-05] MEDS: METOPROLOL TARTRATE 50MG TABLET PO SCH (20:50)
[2020-07-06] VITALS: BP 140/75
[2020-07-06] MEDS: IPRATROPIUM/ALBUTEROL 0.5-3(2.5)MG/3ML NEB HHN SCH ×6 (01:01→21:26)
[2020-07-06 04:00] VITALS: BP 144/77
[2020-07-06 05:51] LABS: BASOPHILS % 0.2 % (0.0-2.0); EOSINOPHILS % 2.9 % (0.0-5.0); HEMATOCRIT. 37.6 % (36.0-48.0); HEMOGLOBIN. 12.6 g/dL (12.0-16.0); LYMPHOCYTES % 9.5 % (20.0-50.0); MEAN CORPUSCULAR HEMOGLOBIN 30.5 pg (28.0-32.0); MEAN CORPUSCULAR VOLUME 90.9 fL (81.0-99.0); MEAN PLATELET VOLUME 9.9 fl (7.4-10.4); MONOCYTES % 11.8 % (2.0-8.0); NEUTROPHILS % 75.6 % (40.0-76.0); PLATELET 241 x1000/uL (130-400); RED BLOOD CELL COUNT 4.13 mill/uL (4.2-5.4); RED CELL DISTRIBUTION WIDTH 14.6 % (11.6-14.6)
[2020-07-06 06:22] LABS: CHLORIDE 109 mEq/L (98-107)
[2020-07-06 08:00] VITALS: BP 151/92
[2020-07-06] MEDS: METOPROLOL TARTRATE 50MG TABLET PO SCH ×2 (08:48→21:54)
[2020-07-06] MEDS: AMLODIPINE 5MG TABLET PO SCH ×2 (08:48→21:55)
[2020-07-06] MEDS: RANOLAZINE 500 MG TAB.SR.12H PO SCH ×2 (08:49→21:53)
[2020-07-06] MEDS: FAMOTIDINE 20MG/2ML VIAL IV SCH ×2 (08:49→21:54)
[2020-07-06] MEDS: LEVETIRACETAM 500MG PREMIX 100 ML IV SCH ×2 (08:54→21:59)
[2020-07-06] MEDS: HYDROCODONE/ACETAMINOPHEN 5/325MG TABLET PO PRN (09:18)
[2020-07-06] MEDS: MORPHINE SULFATE 2 MG/ML CPJ (NOT FOR IM USE) IV PRN ×4 (11:20→22:00)
[2020-07-06] MEDS ORDERED: LOSARTAN POTASSIUM 25 MG TABLET PO SCH (12:00)
[2020-07-06] MEDS ORDERED: MAGNESIUM HYDROXIDE 400MG/5ML 30ML UDC PO PRN (13:00)
[2020-07-06] MEDS ORDERED: SENNOSIDES/DOCUSATE SOD 8.6/50MG TABLET PO PRN (13:00)
[2020-07-06] MEDS: HYDRALAZINE HCL 25MG TABLET PO SCH ×2 (14:47→23:00)
[2020-07-06] MEDS: DOCUSATE SODIUM 100MG CAPSULE PO PRN (14:52)
[2020-07-06 15:04] VITALS: BP 135/73
[2020-07-06 16:00] VITALS: BP 135/73
[2020-07-06 20:00] VITALS: BP 121/60
[2020-07-06] MEDS: ATORVASTATIN CALCIUM 40MG TABLET PO SCH (21:54)
[2020-07-06] MEDS ORDERED: IOHEXOL-300 100 ML BOTTLE ONE (22:24)
[2020-07-07 04:00] VITALS: BP 133/61
[2020-07-07] MEDS: MORPHINE SULFATE 2 MG/ML CPJ (NOT FOR IM USE) IV PRN ×2 (04:19→22:00)
[2020-07-07] MEDS: IPRATROPIUM/ALBUTEROL 0.5-3(2.5)MG/3ML NEB HHN SCH ×4 (04:38→20:44)
[2020-07-07] MEDS: HYDRALAZINE HCL 25MG TABLET PO SCH ×3 (06:40→23:17)
[2020-07-07 08:00] VITALS: BP 149/80
[2020-07-07] MEDS: DOCUSATE SODIUM 100MG CAPSULE PO PRN ×2 (10:54→21:59)
[2020-07-07] MEDS: METOPROLOL TARTRATE 50MG TABLET PO SCH ×2 (10:54→21:59)
[2020-07-07] MEDS: AMLODIPINE 5MG TABLET PO SCH ×2 (10:54→21:59)
[2020-07-07] MEDS: LOSARTAN POTASSIUM 50 MG TABLET PO SCH (10:55)
[2020-07-07] MEDS: HYDROCODONE/ACETAMINOPHEN 5/325MG TABLET PO PRN ×2 (10:56→16:49)
[2020-07-07] MEDS: LEVETIRACETAM 500MG PREMIX 100 ML IV SCH ×2 (10:56→22:00)
[2020-07-07] MEDS: FAMOTIDINE 20MG/2ML VIAL IV SCH ×2 (10:56→21:58)
[2020-07-07 11:24] LABS: BASOPHILS % 0.4 % (0.0-2.0); EOSINOPHILS % 2.5 % (0.0-5.0); HEMATOCRIT. 41.7 % (36.0-48.0); HEMOGLOBIN. 13.9 g/dL (12.0-16.0); LYMPHOCYTES % 10.3 % (20.0-50.0); MEAN CORPUSCULAR HEMOGLOBIN 30.4 pg (28.0-32.0); MEAN PLATELET VOLUME 9.7 fl (7.4-10.4); MONOCYTES % 12.5 % (2.0-8.0); NEUTROPHILS % 74.3 % (40.0-76.0); PLATELET 274 x1000/uL (130-400); RED BLOOD CELL COUNT 4.58 mill/uL (4.2-5.4); RED CELL DISTRIBUTION WIDTH 14.7 % (11.6-14.6)
[2020-07-07 11:38] LABS: CHLORIDE 108 mEq/L (98-107)
[2020-07-07 12:00] VITALS: BP 100/79
[2020-07-07] MEDS: RANOLAZINE 500 MG TAB.SR.12H PO SCH ×2 (13:43→21:58)
[2020-07-07 16:00] VITALS: BP 123/81
[2020-07-07] MEDS ORDERED: POTASSIUM CHLORIDE 20MEQ TABLET SR PO SCH (17:00)
[2020-07-07 20:00] VITALS: BP 128/62
[2020-07-07] MEDS: ATORVASTATIN CALCIUM 40MG TABLET PO SCH ×2 (21:00→21:58)
[2020-07-08] MEDS: IPRATROPIUM/ALBUTEROL 0.5-3(2.5)MG/3ML NEB HHN SCH ×6 (00:33→21:00)
[2020-07-08 04:00] VITALS: BP 109/67
[2020-07-08] MEDS: HYDRALAZINE HCL 25MG TABLET PO SCH ×2 (06:00→13:17)
[2020-07-08] MEDS: MORPHINE SULFATE 2 MG/ML CPJ (NOT FOR IM USE) IV PRN ×2 (06:32→20:14)
[2020-07-08 08:00] VITALS: BP 133/70
[2020-07-08] MEDS: METOPROLOL TARTRATE 50MG TABLET PO SCH ×2 (08:18→22:35)
[2020-07-08] MEDS: AMLODIPINE 5MG TABLET PO SCH ×2 (08:18→22:40)
[2020-07-08] MEDS: LOSARTAN POTASSIUM 50 MG TABLET PO SCH (08:18)
[2020-07-08] MEDS: FAMOTIDINE 20MG/2ML VIAL IV SCH ×2 (08:18→22:25)
[2020-07-08] MEDS: RANOLAZINE 500 MG TAB.SR.12H PO SCH ×2 (08:18→22:26)
[2020-07-08] MEDS: LEVETIRACETAM 500MG PREMIX 100 ML IV SCH ×2 (08:19→22:25)
[2020-07-08 08:49] LABS: HEMATOCRIT. 40.1 % (36.0-48.0); HEMOGLOBIN. 13.2 g/dL (12.0-16.0); MEAN CORPUSCULAR HEMOGLOBIN 29.9 pg (28.0-32.0); MEAN CORPUSCULAR VOLUME 90.9 fL (81.0-99.0); MEAN PLATELET VOLUME 9.3 fl (7.4-10.4); PLATELET 260 x1000/uL (130-400); RED BLOOD CELL COUNT 4.41 mill/uL (4.2-5.4); RED CELL DISTRIBUTION WIDTH 14.6 % (11.6-14.6)
[2020-07-08 09:03] LABS: CHLORIDE 108 mEq/L (98-107)
[2020-07-08 10:22] LABS: PLATELET ESTIMATE NORMAL
[2020-07-08] MEDS ORDERED: METO-539 PO (11:49)
[2020-07-08] MEDS ORDERED: TOPUD PO (11:49)
[2020-07-08] MEDS ORDERED: AMLO5TAB88 PO (11:49)
[2020-07-08] MEDS ORDERED: HYDR-4134 PO (11:49)
[2020-07-08] MEDS ORDERED: KEPP500 MT (11:49)
[2020-07-08] MEDS ORDERED: LOSA50TA3 PO (11:49)
[2020-07-08] MEDS ORDERED: HYDR-4001 PO (11:49)
[2020-07-08] MEDS ORDERED: DOCU-150 PO (11:49)
[2020-07-08] MEDS ORDERED: SENN-3 PO (11:49)
[2020-07-08] MEDS ORDERED: LIP40 PO (11:49)
[2020-07-08 12:00] VITALS: BP_SYST 134; BP_SYST 143; BP_DIAS 74; BP_DIAS 77
[2020-07-08 16:00] VITALS: BP 138/65
[2020-07-08 20:00] VITALS: BP 150/78
[2020-07-08] MEDS: ATORVASTATIN CALCIUM 40MG TABLET PO SCH (21:00)
[2020-07-08] MEDS: HYDRALAZINE HCL 50MG TABLET PO SCH (22:30)
[2020-07-09] VITALS: BP 139/73
[2020-07-09 04:00] VITALS: BP 134/87
[2020-07-09] MEDS: IPRATROPIUM/ALBUTEROL 0.5-3(2.5)MG/3ML NEB HHN SCH ×2 (04:00)
[2020-07-09] MEDS: HYDRALAZINE HCL 50MG TABLET PO SCH (06:01)
[2020-07-09 06:26] LABS: CHLORIDE 110 mEq/L (98-107)
[2020-07-09 06:33] LABS: BASOPHILS % 0.8 % (0.0-2.0); EOSINOPHILS % 5.5 % (0.0-5.0); HEMATOCRIT. 39.9 % (36.0-48.0); HEMOGLOBIN. 13.5 g/dL (12.0-16.0); LYMPHOCYTES % 15.2 % (20.0-50.0); MEAN CORPUSCULAR HEMOGLOBIN 30.7 pg (28.0-32.0); MEAN CORPUSCULAR VOLUME 90.6 fL (81.0-99.0); MEAN PLATELET VOLUME 9.3 fl (7.4-10.4); MONOCYTES % 13.7 % (2.0-8.0); NEUTROPHILS % 64.8 % (40.0-76.0); PLATELET 247 x1000/uL (130-400); RED CELL DISTRIBUTION WIDTH 14.8 % (11.6-14.6)
[2020-07-09 08:00] VITALS: BP 147/76
[2020-07-09] MEDS: LEVETIRACETAM 500MG PREMIX 100 ML IV SCH (08:12)
[2020-07-09] MEDS: FAMOTIDINE 20MG/2ML VIAL IV SCH (08:12)
[2020-07-09] MEDS: METOPROLOL TARTRATE 50MG TABLET PO SCH (08:13)
[2020-07-09] MEDS: LOSARTAN POTASSIUM 50 MG TABLET PO SCH (08:13)
[2020-07-09] MEDS: RANOLAZINE 500 MG TAB.SR.12H PO SCH (08:13)
[2020-07-09] MEDS: AMLODIPINE 5MG TABLET PO SCH (08:13)
[2020-07-09] MEDS: MORPHINE SULFATE 2 MG/ML CPJ (NOT FOR IM USE) IV PRN ×2 (08:17→12:25)
[2020-07-09 12:00] VITALS: BP 124/83
[2020-07-09] MEDS ORDERED: HYDRALAZINE HCL 25MG TABLET PO SCH (14:00)
[2020-07-09 15:30] VITALS: BP 127/58
[2020-07-09 16:00] VITALS: BP 127/58
[2020-07-09] MEDS ORDERED: OXYCODONE HCL/ACETAMINOPHEN 5/325MG TABLET PO PRN (16:00)
== END 2020-07-09 16:30 | DRG 25 ==
LOC: ER 19:01 → MICUSO 21:23 → EDBEDREQSVC 21:29 → EDBEDREQ 21:29 → EDBEDREQTM 21:29 → MICUNO 06-30 05:00 → 6EST 07-05 17:25
PROVIDERS: ADMIT Internal Medicine; ATTEND Internal Medicine
PROC: 30233R1 Transfusion of Nonautologous Platelets into Peripheral Vein, Percutaneous Approach (ICD-10-PCS; 2020-06-30)
PROC: 0BH18EZ Insertion of Endotracheal Airway into Trachea, Via Natural or Artificial Opening Endoscopic (ICD-10-PCS; 2020-07-01)
PROC: 00C40ZZ Extirpation of Matter from Intracranial Subdural Space, Open Approach (ICD-10-PCS; principal; 2020-07-07)
PROC: 5A1945Z Respiratory Ventilation, 24-96 Consecutive Hours (ICD-10-PCS; 2020-07-07)
PROC: 0NU10JZ Supplement Frontal Bone with Synthetic Substitute, Open Approach (ICD-10-PCS; 2020-07-07)
PROC: 00U207Z Supplement Dura Mater with Autologous Tissue Substitute, Open Approach (ICD-10-PCS; 2020-07-07)
PROC: 00H Central Nervous System and Cranial Nerves, Insertion (ICD-10-PCS; 2020-07-07)
PROC: 4A103BD Monitoring of Intracranial Pressure, Percutaneous Approach (ICD-10-PCS; 2020-07-07)
DX: I62.01 Nontraumatic acute subdural hemorrhage (principal); I21.A1 Myocardial infarction type 2; J96.01 Acute respiratory failure with hypoxia; G92 Toxic encephalopathy; G96.08 Other cranial cerebrospinal fluid leak; I16.1 Hypertensive emergency; G81.94 Hemiplegia, unspecified affecting left nondominant side; D62 Acute posthemorrhagic anemia; I48.20 Chronic atrial fibrillation, unspecified; I61.9 Nontraumatic intracerebral hemorrhage, unspecified; I62.03 Nontraumatic chronic subdural hemorrhage; Z96.653 Presence of artificial knee joint, bilateral; R29.6 Repeated falls; G43.909 Migraine, unspecified, not intractable, without status migrainosus; G35 Multiple sclerosis; E66.01 Morbid (severe) obesity due to excess calories; E78.5 Hyperlipidemia, unspecified; E87.6 Hypokalemia; R29.810 Facial weakness; Z20.828 Contact with and (suspected) exposure to other viral communicable diseases; G93.89 Other specified disorders of brain; Z68.34 Body mass index [BMI] 34.0-34.9, adult; Z91.81 History of falling; Z78.1 Physical restraint status; Z79.82 Long term (current) use of aspirin; Z79.899 Other long term (current) drug therapy; Z86.73 Personal history of transient ischemic attack (TIA), and cerebral infarction without residual deficits
CPT/HCPCS: 36415; 36600; 71045; 80048; 80053; 80320; 82375; 82805; 83036; 83721; 83735; 83880; 84478; 84484; 85025; 86850; 86900; 86920; 87426; 88304; 92610; 93005; 93970; 94640; 95816; 96365; 97112; 97116; 97163; 97166; 97530; 97535; 99291; C1713; C1758; J0461; J0690; J1100; J1940; J1953; J2250; J2270; J2405; J2704; J2710; J3010; J3480; J3490; J7050; J7060; P9034; Q9967; G0480